=== PATIENT | male | born 1990 | race Caucasian/White ===

== ENCOUNTER 2018-01-08 09:11 | Emergency (ER) | payer OTHER ==
[~2018-01-08] VITALS: Ht 167.6 cm; Wt 64.2 kg
[2018-01-08 09:15] VITALS: BP 152/100
[2018-01-08] MEDS ORDERED: BENZOCAINE 20% SPRAY 0.5ML ONE (09:29)
== END 2018-01-08 09:52 | disposition home or self-care (01) ==
LOC: ED 09:46
DX: K02.9 Dental caries, unspecified (principal); K04.7 Periapical abscess without sinus
CPT/HCPCS: 41800; 99283

== ENCOUNTER 2018-02-02 09:44 | Emergency (ER) | payer SELFPAY ==
[~2018-02-02] VITALS: Ht 167.6 cm; Wt 61.0 kg
[2018-02-02 09:49] VITALS: BP 116/80
== END 2018-02-02 10:28 | disposition home or self-care (01) ==
LOC: ED 10:22
DX: K08.89 Other specified disorders of teeth and supporting structures (principal)
CPT/HCPCS: 99283

== ENCOUNTER 2018-06-10 17:40 | Emergency (ER) | payer MEDICAID ==
[~2018-06-10] VITALS: Ht 167.6 cm; Wt 63.0 kg
[2018-06-10 17:44] VITALS: BP 115/73
--- NOTE | 2018-06-10 19:04 | NUR ---
NA/3 IN LOBBY
== END 2018-06-10 19:05 | disposition left against medical advice (07) ==
LOC: ED 18:59
DX: K05.219 Aggressive periodontitis, localized, unspecified severity (principal)
CPT/HCPCS: 99281

== ENCOUNTER 2018-10-23 12:01 | Emergency (ER) | payer MEDICAID ==
[~2018-10-23] VITALS: Ht 165.1 cm; Wt 5.0 kg
[2018-10-23 12:07] VITALS: BP 111/72
--- NOTE | 2018-10-23 12:11 | NUR ---
EKG IS AT THE BEDSIDE
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
[2018-10-23] MEDS ORDERED: LORazepam 1MG TABLET ONE (12:41)
--- NOTE | 2018-10-23 12:44 | NUR ---
PT REFUSED LABWORK AND ATIVAN. KRYSTLE PAC AWARE. PT REQUESTING "REFERRAL ONLY."
[2018-10-23] MEDS ORDERED: LORazepam 1MG TABLET PO ONE (13:00)
== END 2018-10-23 12:52 | disposition home or self-care (01) ==
LOC: ED 12:46
DX: F41.1 Generalized anxiety disorder (principal); R07.89 Other chest pain; F17.210 Nicotine dependence, cigarettes, uncomplicated
CPT/HCPCS: 93005; 99283; 99284

== ENCOUNTER 2019-01-28 09:03 | Emergency (ER) | payer MEDICAID ==
[~2019-01-28] VITALS: Ht 165.1 cm; Wt 59.7 kg
[2019-01-28 09:22] VITALS: BP 134/71
[2019-01-28] MEDS ORDERED: IBUPROFEN 200 MG TABLET ONE (09:48)
[2019-01-28] MEDS ORDERED: ACETAMINOPHEN 500 MG TABLET ONE (09:48)
[2019-01-28] MEDS ORDERED: ACETAMINOPHEN 500 MG TABLET PO ONE (10:00)
[2019-01-28] MEDS ORDERED: IBUPROFEN 800 MG TABLET PO ONE (10:00)
--- NOTE | 2019-01-28 10:18 | NUR ---
PT REPORTS FEELING BETTER.
[2019-01-28 10:21] LABS: RAPID INFLUENZA A Negative (Negative); RAPID INFLUENZA B Negative (Negative)
--- NOTE | 2019-01-28 11:04 | NUR ---
Patient/Caregiver given discharge instructions and they have confirmed that they understand the instructions. Patient ambulatory with steady gait.
== END 2019-01-28 11:12 | disposition home or self-care (01) ==
LOC: ED 11:00
DX: R05 Cough (principal); J00 Acute nasopharyngitis [common cold]; M79.10 Myalgia, unspecified site; R09.81 Nasal congestion; F41.1 Generalized anxiety disorder
CPT/HCPCS: 87400; 99283

== ENCOUNTER 2019-05-18 04:51 | Emergency (ER) | payer SELFPAY ==
[~2019-05-18] VITALS: Ht 170.2 cm; Wt 61.0 kg
[2019-05-18 04:54] VITALS: BP 124/64
--- NOTE | 2019-05-18 05:08 | NUR ---
pa at pt's bedside for eval
--- NOTE | 2019-05-18 05:13 | NUR ---
PT PRESENTED WITH C/O RIGHT LOWER DENTAL PAIN, SWELLING. MONITORS APPLIED, SIDERAILS UP X2, CALL LIGHT WITHIN REACH
[2019-05-18] MEDS ORDERED: HYDROcodone/APAP 5/325 TABLET PO ONE (05:30)
[2019-05-18] MEDS ORDERED: HYDROcodone/APAP 5/325 TABLET ONE (05:31)
--- NOTE | 2019-05-18 05:35 | NUR ---
PT MEDICATED PER MAR
== END 2019-05-18 05:43 ==
LOC: ED 05:36
DX: K04.7 Periapical abscess without sinus (principal)
CPT/HCPCS: 41800; 99284

== ENCOUNTER 2019-08-10 12:48 | Emergency (ER) | payer SELFPAY ==
[~2019-08-10] VITALS: Ht 165.1 cm; Wt 63.0 kg
[2019-08-10 12:50] VITALS: BP 132/82
--- NOTE | 2019-08-10 14:16 | NUR ---
Patient/Caregiver given discharge instructions and they have confirmed that they understand the instructions. Patient ambulatory with steady gait.
== END 2019-08-10 14:17 | disposition home or self-care (01) ==
LOC: ED 13:32
DX: S43.122A Dislocation of left acromioclavicular joint, 100%-200% displacement, initial encounter (principal); W18.39XA Other fall on same level, initial encounter; Y93.89 Activity, other specified; Y92.009 Unspecified place in unspecified non-institutional (private) residence as the place of occurrence of the external cause; Y99.8 Other external cause status
CPT/HCPCS: 99283

== ENCOUNTER 2020-01-10 18:53 | Emergency (ER) | payer SELFPAY ==
[~2020-01-10] VITALS: Ht 167.6 cm; Wt 67.3 kg
[2020-01-10 18:55] VITALS: BP 113/70
--- NOTE | 2020-01-10 19:18 | NUR ---
WAREHOUSE DISTRIBUTION ASSOCIATE WAS GETTING MASK ON AND ABOUT TO WALK INTO ROOM, PATIENT WALKED OUT OF ROOM AND LEFT ER. CHARGE NURSE AWARE PATIENT ELOPLED.
== END 2020-01-10 19:20 | disposition left against medical advice (07) ==
LOC: ED 19:00
DX: M79.10 Myalgia, unspecified site (principal); R09.81 Nasal congestion; R53.83 Other fatigue; Z53.21 Procedure and treatment not carried out due to patient leaving prior to being seen by health care provider

== ENCOUNTER 2020-03-01 18:55 | Emergency (ER) | payer SELFPAY | END 2020-03-01 19:50 | disposition home or self-care (01) | LOC: ED 19:00 | DX: Z02.9 Encounter for administrative examinations, unspecified (principal) ==

== ENCOUNTER 2020-06-05 17:53 | Emergency (ER) | payer SELFPAY ==
[~2020-06-05] VITALS: Ht 167.6 cm; Wt 61.1 kg
[2020-06-05] MEDS ORDERED: IBUPROFEN 200 MG TABLET PO ONE (18:30)
--- NOTE | 2020-06-05 18:51 | NUR ---
PT TO ULTRASOUND
[2020-06-05] MEDS ORDERED: IBUPROFEN 200 MG TABLET ONE (19:15)
--- NOTE | 2020-06-05 19:44 | NUR ---
BREAK RN: Patient given discharge instructions and they have confirmed that they understand the instructions. Patient ambulatory with steady gait.
[2020-06-05 19:45] VITALS: BP 115/72
== END 2020-06-05 19:47 | disposition home or self-care (01) ==
LOC: ED 19:40
DX: L03.113 Cellulitis of right upper limb (principal); M79.631 Pain in right forearm; M25.531 Pain in right wrist; M79.89 Other specified soft tissue disorders; Z72.9 Problem related to lifestyle, unspecified
CPT/HCPCS: 99284

== ENCOUNTER 2020-06-12 02:12 | Emergency (ER) | payer SELFPAY ==
[~2020-06-12] VITALS: Ht 167.6 cm; Wt 65.0 kg
[2020-06-12 02:15] VITALS: BP 99/64
== END 2020-06-12 03:21 | disposition home or self-care (01) ==
LOC: ED 03:01
DX: M79.631 Pain in right forearm (principal); M77.8 Other enthesopathies, not elsewhere classified
CPT/HCPCS: 99281